=== PATIENT | male | born 1985 | race Native Hawaiian/Other Pacific Islander ===

== ENCOUNTER 2020-06-25 10:17 | Emergency (ER) | payer OTHER ==
[~2020-06-25] VITALS: Ht 182.9 cm; Wt 70.3 kg
[2020-06-25] MEDS ORDERED: NUCYNTA75 MG PO (10:46)
[2020-06-25] MEDS ORDERED: NUCYNTA ER50 MG PO (10:47)
[2020-06-25 11:30] VITALS: BP 117/85; TEMP 97.8
== END 2020-06-25 11:30 | disposition home or self-care (01) ==
LOC: ED 10:17
DX: S29.011A Strain of muscle and tendon of front wall of thorax, initial encounter (principal); W18.39XA Other fall on same level, initial encounter; Y92.89 Other specified places as the place of occurrence of the external cause
CPT/HCPCS: 96372; 99282; 99283; J2360